=== PATIENT | female | born 1955 | race African-American/Black ===

== ENCOUNTER 2019-05-31 03:36 | Inpatient (IN) | payer OTHER ==
[~2019-05-31] VITALS: Ht 165.1 cm; Wt 87.5 kg
[2019-05-31] VITALS (22 sets, daily range): BP systolic 89–142; BP diastolic 44–98
[2019-05-31] MEDS ORDERED: IPRATROPIUM BROMIDE (0.02%) 0.5MG/2.5ML NEB HHN STA (03:41)
[2019-05-31] MEDS ORDERED: MAGNESIUM 2 G PREMIX 50 ML IV STA (03:41)
[2019-05-31] MEDS ORDERED: METHYLPREDNISOLONE SOD SUCC 125 MG/2 ML VIAL IV STA (03:41)
[2019-05-31] MEDS ORDERED: ALBUTEROL (0.083%) 2.5MG/3ML NEB HHN STA (03:41)
[2019-05-31 04:34] LABS: HEMATOCRIT. 43.5 % (36.0-48.0); HEMOGLOBIN. 14.1 g/dL (12.0-16.0); MEAN CORPUSCULAR HEMOGLOBIN 28.7 pg (28.0-32.0); MEAN CORPUSCULAR VOLUME 88.2 fL (81.0-99.0); MEAN PLATELET VOLUME 10.3 fl (7.4-10.4); PLATELET 209 x1000/uL (130-400); RED BLOOD CELL COUNT 4.93 mill/uL (4.2-5.4); RED CELL DISTRIBUTION WIDTH 15.2 % (11.6-14.6)
[2019-05-31 04:38] LABS: CHLORIDE 98 mEq/L (98-107)
[2019-05-31 04:42] LABS: INR 1.1; PROTHROMBIN TIME 11.4 sec (9.6-11.0)
[2019-05-31] MEDS ORDERED: PIPERACILLIN/TAZOBACTAM 3.375GM/50ML PREMIX IV SCH (05:00)
[2019-05-31] MEDS ORDERED: ENOXAPARIN 80MG/0.8ML SYR SUBCUT SCH (05:00)
[2019-05-31] MEDS ORDERED: AZITHROMYCIN 500 MG in DEXT 5% WATER 250 ML IV SCH (05:00)
[2019-05-31] MEDS ORDERED: VANCOMYCIN 1 G PREMIX 200 ML IV SCH (05:00)
[2019-05-31] MEDS ORDERED: ASPIRIN 325MG EC TABLET PO SCH (05:15)
[2019-05-31] MEDS ORDERED: TRAMADOL 50MG TABLET PO PRN (08:30)
[2019-05-31] MEDS ORDERED: MAGNESIUM/ALUMINUM HYDROXIDE/SIMETHICONE 30ML UDC PO PRN (08:30)
[2019-05-31] MEDS ORDERED: CLONIDINE 0.1MG TABLET PO PRN (08:30)
[2019-05-31] MEDS ORDERED: ZOLPIDEM TARTRATE 5MG TABLET PO PRN (08:30)
[2019-05-31] MEDS ORDERED: NITROGLYCERIN 0.4MG TABLET SL SL PRN (08:30)
[2019-05-31] MEDS ORDERED: MORPHINE SULFATE 2 MG/ML CPJ (NOT FOR IM USE) IV PRN (08:30)
[2019-05-31] MEDS ORDERED: ACETAMINOPHEN 325MG TABLET PO PRN (08:30)
[2019-05-31] MEDS ORDERED: ONDANSETRON HCL 4MG/2ML INJ IV PRN (08:30)
[2019-05-31 11:18] LABS: BG BASE EXCESS 0.6 mmol/L (-2.0-2.0); BG BILEVEL POS AIRWAY PRESSURE 15/5; BG CARBOXYHEMOGLOBIN 0.2 % (0.5-1.5); BG FRACTION INSPIRED OXYGEN 40; BG HCO3 ACT 25.6 mmol/L (22.0-26.0); BG METHEMOGLOBIN 0.4 % (0.0-1.5); BG OXYHEMOGLOBIN 98.4 % (94.0-97.0); BG PCO2 42.1 mmHg (35.0-45.0); BG PH 7.401 (7.350-7.450); BG PO2 177.5 mmHg (75.0-100.0); BG SAMPLE SITE RIGHT BRACHIAL; BG TOTAL HEMOGLOBIN 13.1 g/dL (12.0-18.0); BG VENT MODE MASK - BIPAP
[2019-05-31 11:35] LABS: CLARITY URINE TURBID (CLEAR); COLOR URINE DARK YELLOW (YELLOW); KETONES URINE TRACE (NEGATIVE); LEUKOCYTE ESTERASE URINE NEGATIVE (NEGATIVE); NITRITE URINE NEGATIVE (NEGATIVE); OCCULT BLOOD URINE NEGATIVE (NEGATIVE); PROTEIN URINE 1+ (NEGATIVE); UROBILINOGEN URINE 0.2 E.U./dL (0.2-1.0)
[2019-05-31 11:49] LABS: PLATELET ESTIMATE NORMAL
[2019-05-31] MEDS: DILTIAZEM HCL 60MG TABLET PO SCH ×2 (12:00→18:52)
[2019-05-31] MEDS: ZINC SULFATE 220 MG ( 50 ) CAPSULE PO SCH (12:40)
[2019-05-31] MEDS: FAMOTIDINE 20MG TABLET PO SCH ×2 (12:40→21:19)
[2019-05-31] MEDS ORDERED: LIDOCAINE HCL/PF 1% 2ML VIAL ONE (12:49)
[2019-05-31] MEDS: CEFTRIAXONE 1 G PREMIX 50 ML IV SCH (13:38)
[2019-05-31] MEDS: IPRATROPIUM/ALBUTEROL 0.5-3(2.5)MG/3ML NEB HHN SCH ×3 (13:39→21:50)
[2019-05-31] MEDS: METHYLPREDNISOLONE SOD SUCC 125 MG/2 ML VIAL IV SCH ×2 (14:01→21:42)
[2019-05-31] MEDS: GUAIFENESIN 200MG/10ML SUGAR FREE UDC PO PRN (14:01)
[2019-05-31] MEDS: LEVOFLOXACIN 500MG PREMIX 100 ML IV SCH (14:02)
[2019-05-31 15:53] LABS: CREATINE KINASE MB FRACTION 2.4 ng/mL (0.5-3.6)
[2019-05-31] MEDS ORDERED: DEXTROSE 50% WATER 50ML SYRINGE IV PRN (18:00)
[2019-05-31] MEDS: ENOXAPARIN 80MG/0.8ML SYR SUBCUT SCH (18:52)
[2019-05-31] MEDS: INSULIN LISPRO 100 UNITS/ML SUBCUT SCH (21:00)
[2019-05-31] MEDS: ASCORBIC ACID 500 MG TABLET PO SCH (21:18)
[2019-05-31] MEDS: GUAIFENESIN 600MG ER TABLET PO SCH (21:18)
[2019-05-31] MEDS: BLOOD SUGAR DIAGNOSTIC STRIP TEST SCH (21:19)
[2019-06-01] VITALS (23 sets, daily range): BP systolic 89–134; BP diastolic 55–83
[2019-06-01] MEDS: IPRATROPIUM/ALBUTEROL 0.5-3(2.5)MG/3ML NEB HHN SCH ×4 (00:57→12:15)
[2019-06-01 01:07] LABS: CREATINE KINASE MB FRACTION 1.7 ng/mL (0.5-3.6)
[2019-06-01] MEDS: ENOXAPARIN 80MG/0.8ML SYR SUBCUT SCH ×2 (05:42→17:47)
[2019-06-01] MEDS: METHYLPREDNISOLONE SOD SUCC 125 MG/2 ML VIAL IV SCH ×3 (05:42→21:27)
[2019-06-01] MEDS: DILTIAZEM HCL 60MG TABLET PO SCH ×2 (06:00)
[2019-06-01] MEDS: BLOOD SUGAR DIAGNOSTIC STRIP TEST SCH ×4 (06:20→21:00)
[2019-06-01] MEDS: INSULIN LISPRO 100 UNITS/ML SUBCUT SCH ×4 (07:20→21:00)
[2019-06-01] MEDS: ZINC SULFATE 220 MG ( 50 ) CAPSULE PO SCH (08:22)
[2019-06-01] MEDS: ASPIRIN 81MG EC TABLET PO SCH (08:22)
[2019-06-01] MEDS: ASCORBIC ACID 500 MG TABLET PO SCH ×2 (08:23→21:27)
[2019-06-01] MEDS: DOCUSATE SODIUM 100MG CAPSULE PO PRN (08:23)
[2019-06-01] MEDS: FAMOTIDINE 20MG TABLET PO SCH ×2 (08:23→21:27)
[2019-06-01] MEDS: GUAIFENESIN 600MG ER TABLET PO SCH ×2 (08:23→21:27)
[2019-06-01] MEDS ORDERED: ASPIRIN 325MG EC TABLET PO SCH (09:00)
[2019-06-01 09:01] LABS: BASOPHILS % 0.1 % (0.0-2.0); EOSINOPHILS % 0.3 % (0.0-5.0); HEMATOCRIT. 36.3 % (36.0-48.0); HEMOGLOBIN. 11.8 g/dL (12.0-16.0); LYMPHOCYTES % 8.7 % (20.0-50.0); MEAN CORPUSCULAR HEMOGLOBIN 28.6 pg (28.0-32.0); MEAN CORPUSCULAR VOLUME 87.6 fL (81.0-99.0); MEAN PLATELET VOLUME 10.2 fl (7.4-10.4); MONOCYTES % 2.7 % (2.0-8.0); NEUTROPHILS % 88.2 % (40.0-76.0); PLATELET 155 x1000/uL (130-400); RED BLOOD CELL COUNT 4.14 mill/uL (4.2-5.4); RED CELL DISTRIBUTION WIDTH 15.2 % (11.6-14.6)
[2019-06-01 09:04] LABS: CHLORIDE 99 mEq/L (98-107)
[2019-06-01 09:12] LABS: PHOSPHORUS 3.6 mg/dL (2.5-4.9)
[2019-06-01] MEDS ORDERED: DILTIAZEM HCL 5MG/ML 5ML VIAL IV SCH (10:00)
[2019-06-01] MEDS: DILTIAZEM HCL 125 MG in DEXT 5% WATER 100 ML IV SCH ×2 (11:41→21:42)
[2019-06-01] MEDS ORDERED: DILTIAZEM HCL 90MG TABLET PO SCH (12:00)
[2019-06-01] MEDS: CEFTRIAXONE 1 G PREMIX 50 ML IV SCH (13:04)
[2019-06-01] MEDS: GUAIFENESIN 200MG/10ML SUGAR FREE UDC PO PRN (13:23)
[2019-06-01] MEDS: LEVOFLOXACIN 500MG PREMIX 100 ML IV SCH (13:54)
[2019-06-01] MEDS: IPRATROPIUM/ALBUTEROL 0.5-3(2.5)MG/3ML NEB NEB PRN (16:33)
[2019-06-01] MEDS: IPRATROPIUM BROMIDE (0.02%) 0.5MG/2.5ML NEB HHN SCH (20:19)
[2019-06-01] MEDS ORDERED: GUAIFENESIN 600MG ER TABLET PO SCH (21:00)
[2019-06-02] VITALS (23 sets, daily range): BP systolic 100–141; BP diastolic 29–94
[2019-06-02] MEDS: IPRATROPIUM BROMIDE (0.02%) 0.5MG/2.5ML NEB HHN SCH ×6 (00:19→20:17)
[2019-06-02] MEDS ORDERED: DILTIAZEM HCL 125 MG in DEXT 5% WATER 100 ML IV SCH ×2 (03:15→13:00)
[2019-06-02] MEDS: METHYLPREDNISOLONE SOD SUCC 125 MG/2 ML VIAL IV SCH (05:25)
[2019-06-02] MEDS: ENOXAPARIN 80MG/0.8ML SYR SUBCUT SCH ×2 (05:25→17:45)
[2019-06-02] MEDS: DILTIAZEM HCL 125 MG in DEXT 5% WATER 100 ML IV SCH (05:26)
[2019-06-02] MEDS: BLOOD SUGAR DIAGNOSTIC STRIP TEST SCH ×4 (06:50→21:46)
[2019-06-02] MEDS: INSULIN LISPRO 100 UNITS/ML SUBCUT SCH ×4 (06:55→21:00)
[2019-06-02] MEDS: ASCORBIC ACID 500 MG TABLET PO SCH ×2 (08:25→21:38)
[2019-06-02] MEDS: FAMOTIDINE 20MG TABLET PO SCH ×2 (08:25→21:37)
[2019-06-02] MEDS: ASPIRIN 81MG EC TABLET PO SCH (08:25)
[2019-06-02] MEDS: ZINC SULFATE 220 MG ( 50 ) CAPSULE PO SCH (08:25)
[2019-06-02] MEDS: DOCUSATE SODIUM 100MG CAPSULE PO PRN ×2 (08:25→17:16)
[2019-06-02] MEDS: GUAIFENESIN 600MG ER TABLET PO SCH ×2 (08:26→21:38)
[2019-06-02] MEDS: GUAIFENESIN 200MG/10ML SUGAR FREE UDC PO PRN ×2 (08:29→21:52)
[2019-06-02] MEDS: CEFTRIAXONE 1 G PREMIX 50 ML IV SCH (08:30)
[2019-06-02] MEDS ORDERED: LEVOFLOXACIN 500MG PREMIX 100 ML IV SCH (11:00)
[2019-06-02] MEDS: DILTIAZEM HCL 30MG TABLET PO SCH ×2 (14:00→21:38)
[2019-06-02] MEDS: AZITHROMYCIN 500MG in DEXTROSE 5% WATER 250ML IV SCH (17:16)
[2019-06-02] MEDS: PREDNISONE 20MG TABLET PO SCH (17:17)
[2019-06-03] VITALS (20 sets, daily range): BP systolic 94–132; BP diastolic 49–97
[2019-06-03] MEDS: IPRATROPIUM BROMIDE (0.02%) 0.5MG/2.5ML NEB HHN SCH ×6 (00:26→20:58)
[2019-06-03] MEDS: BLOOD SUGAR DIAGNOSTIC STRIP TEST SCH ×4 (07:00→21:00)
[2019-06-03] MEDS: ENOXAPARIN 80MG/0.8ML SYR SUBCUT SCH ×2 (07:01→17:06)
[2019-06-03] MEDS: DILTIAZEM HCL 30MG TABLET PO SCH (07:01)
[2019-06-03 07:15] LABS: BASOPHILS % 0.3 % (0.0-2.0); EOSINOPHILS % 0.7 % (0.0-5.0); HEMATOCRIT. 36.3 % (36.0-48.0); LYMPHOCYTES % 9.7 % (20.0-50.0); MEAN CORPUSCULAR HEMOGLOBIN 28.8 pg (28.0-32.0); MEAN CORPUSCULAR VOLUME 86.8 fL (81.0-99.0); MEAN PLATELET VOLUME 9.6 fl (7.4-10.4); MONOCYTES % 8.6 % (2.0-8.0); NEUTROPHILS % 80.7 % (40.0-76.0); PLATELET 190 x1000/uL (130-400); RED BLOOD CELL COUNT 4.18 mill/uL (4.2-5.4); RED CELL DISTRIBUTION WIDTH 14.7 % (11.6-14.6)
[2019-06-03] MEDS: INSULIN LISPRO 100 UNITS/ML SUBCUT SCH ×4 (07:20→21:00)
[2019-06-03 07:30] LABS: CHLORIDE 102 mEq/L (98-107)
[2019-06-03] MEDS: ASCORBIC ACID 500 MG TABLET PO SCH ×2 (08:25→22:38)
[2019-06-03] MEDS: ASPIRIN 81MG EC TABLET PO SCH (08:25)
[2019-06-03] MEDS: PREDNISONE 20MG TABLET PO SCH ×2 (08:25→17:05)
[2019-06-03] MEDS: FAMOTIDINE 20MG TABLET PO SCH ×2 (08:25→22:38)
[2019-06-03] MEDS: GUAIFENESIN 600MG ER TABLET PO SCH ×2 (08:26→22:39)
[2019-06-03] MEDS: ZINC SULFATE 220 MG ( 50 ) CAPSULE PO SCH (08:26)
[2019-06-03] MEDS: CEFTRIAXONE 1 G PREMIX 50 ML IV SCH (08:28)
[2019-06-03] MEDS: AZITHROMYCIN 500MG in DEXTROSE 5% WATER 250ML IV SCH (08:28)
[2019-06-03] MEDS ORDERED: DILTIAZEM HCL 5MG/ML 5ML VIAL IV NR (09:30)
[2019-06-03] MEDS ORDERED: DILTIAZEM HCL 125 MG in DEXT 5% WATER 100 ML IV SCH (10:00)
[2019-06-03] MEDS ORDERED: POTASSIUM CHLORIDE 20MEQ TABLET SR PO NR (10:15)
[2019-06-03] MEDS: DILTIAZEM HCL 60MG TABLET PO SCH ×2 (12:09→17:05)
[2019-06-04] VITALS (17 sets, daily range): BP systolic 95–172; BP diastolic 36–100
[2019-06-04] MEDS: DILTIAZEM HCL 60MG TABLET PO SCH ×5 (00:20→23:35)
[2019-06-04] MEDS: IPRATROPIUM BROMIDE (0.02%) 0.5MG/2.5ML NEB HHN SCH ×5 (00:52→15:40)
[2019-06-04] MEDS: ENOXAPARIN 80MG/0.8ML SYR SUBCUT SCH ×2 (04:50→16:47)
[2019-06-04] MEDS: INSULIN LISPRO 100 UNITS/ML SUBCUT SCH ×2 (06:50→21:00)
[2019-06-04 07:00] LABS: BASOPHILS % 0.1 % (0.0-2.0); EOSINOPHILS % 0.8 % (0.0-5.0); HEMATOCRIT. 36.5 % (36.0-48.0); HEMOGLOBIN. 12.1 g/dL (12.0-16.0); LYMPHOCYTES % 7.9 % (20.0-50.0); MEAN CORPUSCULAR HEMOGLOBIN 28.8 pg (28.0-32.0); MEAN CORPUSCULAR VOLUME 86.7 fL (81.0-99.0); MONOCYTES % 7.5 % (2.0-8.0); NEUTROPHILS % 83.7 % (40.0-76.0); PLATELET 196 x1000/uL (130-400); RED BLOOD CELL COUNT 4.21 mill/uL (4.2-5.4); RED CELL DISTRIBUTION WIDTH 14.9 % (11.6-14.6)
[2019-06-04] MEDS: BLOOD SUGAR DIAGNOSTIC STRIP TEST SCH ×2 (07:11→22:07)
[2019-06-04 07:41] LABS: CHLORIDE 103 mEq/L (98-107)
[2019-06-04] MEDS: ASPIRIN 81MG EC TABLET PO SCH (08:19)
[2019-06-04] MEDS: ZINC SULFATE 220 MG ( 50 ) CAPSULE PO SCH (08:19)
[2019-06-04] MEDS: FAMOTIDINE 20MG TABLET PO SCH ×2 (08:19→20:08)
[2019-06-04] MEDS: PREDNISONE 20MG TABLET PO SCH (08:19)
[2019-06-04] MEDS: GUAIFENESIN 600MG ER TABLET PO SCH ×2 (08:19→20:08)
[2019-06-04] MEDS: ASCORBIC ACID 500 MG TABLET PO SCH ×2 (08:20→20:08)
[2019-06-04] MEDS: AZITHROMYCIN 500MG in DEXTROSE 5% WATER 250ML IV SCH (08:20)
[2019-06-04] MEDS: CEFTRIAXONE 1 G PREMIX 50 ML IV SCH (10:25)
[2019-06-04] MEDS ORDERED: POTASSIUM CHLORIDE 20MEQ TABLET SR PO SCH (11:15)
[2019-06-04] MEDS: IPRATROPIUM/ALBUTEROL 0.5-3(2.5)MG/3ML NEB NEB PRN (15:38)
[2019-06-04] MEDS: POTASSIUM CHLORIDE 20MEQ TABLET SR PO SCH (16:46)
[2019-06-04] MEDS: GUAIFENESIN 200MG/10ML SUGAR FREE UDC PO PRN (23:42)
[2019-06-05] VITALS (14 sets, daily range): BP systolic 96–153; BP diastolic 63–106
[2019-06-05] MEDS ORDERED: DILTIAZEM HCL 5MG/ML 5ML VIAL IV NR (00:15)
[2019-06-05] MEDS ORDERED: DILTIAZEM HCL 125 MG in DEXT 5% WATER 100 ML IV PRN (00:15)
[2019-06-05] MEDS: IPRATROPIUM BROMIDE (0.02%) 0.5MG/2.5ML NEB HHN SCH ×6 (01:12→20:08)
[2019-06-05] MEDS ORDERED: ENOXAPARIN 80MG/0.8ML SYR SUBCUT SCH (05:15)
[2019-06-05] MEDS: BLOOD SUGAR DIAGNOSTIC STRIP TEST SCH ×2 (06:33→20:42)
[2019-06-05] MEDS: INSULIN LISPRO 100 UNITS/ML SUBCUT SCH ×2 (06:34→20:40)
[2019-06-05] MEDS: DILTIAZEM HCL 60MG TABLET PO SCH (06:35)
[2019-06-05] MEDS: GUAIFENESIN 600MG ER TABLET PO SCH ×2 (08:09→20:39)
[2019-06-05] MEDS: ZINC SULFATE 220 MG ( 50 ) CAPSULE PO SCH (08:09)
[2019-06-05] MEDS: ASPIRIN 81MG EC TABLET PO SCH (08:09)
[2019-06-05] MEDS: POTASSIUM CHLORIDE 20MEQ TABLET SR PO SCH (08:09)
[2019-06-05] MEDS: FAMOTIDINE 20MG TABLET PO SCH (08:09)
[2019-06-05] MEDS: ASCORBIC ACID 500 MG TABLET PO SCH ×2 (08:09→20:39)
[2019-06-05] MEDS: PREDNISONE 20MG TABLET PO SCH (08:09)
[2019-06-05] MEDS: CEFTRIAXONE 1 G PREMIX 50 ML IV SCH (08:10)
[2019-06-05] MEDS: AZITHROMYCIN 500MG in DEXTROSE 5% WATER 250ML IV SCH (08:42)
[2019-06-05 09:00] LABS: CHLORIDE 103 mEq/L (98-107)
[2019-06-05 09:03] LABS: BASOPHILS % 0.4 % (0.0-2.0); EOSINOPHILS % 4.5 % (0.0-5.0); HEMATOCRIT. 42.4 % (36.0-48.0); LYMPHOCYTES % 13.7 % (20.0-50.0); MEAN CORPUSCULAR HEMOGLOBIN 28.9 pg (28.0-32.0); MEAN CORPUSCULAR VOLUME 87.7 fL (81.0-99.0); MEAN PLATELET VOLUME 9.9 fl (7.4-10.4); MONOCYTES % 7.2 % (2.0-8.0); NEUTROPHILS % 74.2 % (40.0-76.0); PLATELET 190 x1000/uL (130-400); RED BLOOD CELL COUNT 4.83 mill/uL (4.2-5.4); RED CELL DISTRIBUTION WIDTH 15.4 % (11.6-14.6)
[2019-06-05] MEDS: DILTIAZEM HCL 90MG TABLET PO SCH ×3 (11:38→23:30)
[2019-06-05] MEDS: ENOXAPARIN 80MG/0.8ML SYR SUBCUT SCH (17:27)
[2019-06-05] MEDS: FAMOTIDINE 40MG TABLET PO SCH (20:42)
[2019-06-05] MEDS: DILTIAZEM HCL 5MG/ML 5ML VIAL IV PRN (21:36)
[2019-06-06] VITALS (12 sets, daily range): BP systolic 115–142; BP diastolic 41–102
[2019-06-06] MEDS: IPRATROPIUM BROMIDE (0.02%) 0.5MG/2.5ML NEB HHN SCH ×6 (00:19→20:05)
[2019-06-06] MEDS: DILTIAZEM HCL 5MG/ML 5ML VIAL IV PRN (00:51)
[2019-06-06] MEDS: GUAIFENESIN 200MG/10ML SUGAR FREE UDC PO PRN ×2 (01:02→08:10)
[2019-06-06] MEDS ORDERED: DILTIAZEM HCL 5MG/ML 5ML VIAL IV NR ×2 (03:00→04:00)
[2019-06-06] MEDS: DILTIAZEM HCL 125 MG in DEXT 5% WATER 100 ML IV SCH ×4 (04:36→20:39)
[2019-06-06] MEDS: ENOXAPARIN 80MG/0.8ML SYR SUBCUT SCH ×2 (05:19→18:10)
[2019-06-06] MEDS: BLOOD SUGAR DIAGNOSTIC STRIP TEST SCH ×2 (05:58→20:17)
[2019-06-06] MEDS: INSULIN LISPRO 100 UNITS/ML SUBCUT SCH ×2 (05:59→20:17)
[2019-06-06] MEDS: ASPIRIN 81MG EC TABLET PO SCH (08:10)
[2019-06-06] MEDS: PREDNISONE 20MG TABLET PO SCH (08:10)
[2019-06-06] MEDS: ASCORBIC ACID 500 MG TABLET PO SCH ×2 (08:10→20:39)
[2019-06-06] MEDS: ZINC SULFATE 220 MG ( 50 ) CAPSULE PO SCH (08:10)
[2019-06-06] MEDS: GUAIFENESIN 600MG ER TABLET PO SCH ×2 (08:10→20:39)
[2019-06-06] MEDS: POTASSIUM CHLORIDE 20MEQ TABLET SR PO SCH (08:18)
[2019-06-06] MEDS: FAMOTIDINE 40MG TABLET PO SCH ×2 (08:18→20:39)
[2019-06-06] MEDS ORDERED: DILTIAZEM HCL 5MG/ML 5ML VIAL IV SCH (11:00)
[2019-06-06] MEDS ORDERED: DIGOXIN 500MCG/2ML AMP IV SCH ×2 (13:00→15:00)
[2019-06-06] MEDS: CEFTRIAXONE 1 G PREMIX 50 ML IV SCH (14:53)
[2019-06-06] MEDS: AZITHROMYCIN 500MG in DEXTROSE 5% WATER 250ML IV SCH (15:41)
[2019-06-06] MEDS: DIGOXIN 500MCG/2ML AMP IV SCH ×2 (16:23→18:10)
[2019-06-07] VITALS (79 sets, daily range): BP systolic 55–192; BP diastolic 13–145
[2019-06-07] MEDS: IPRATROPIUM BROMIDE (0.02%) 0.5MG/2.5ML NEB HHN SCH ×6 (00:21→20:03)
[2019-06-07] MEDS: DILTIAZEM HCL 125 MG in DEXT 5% WATER 100 ML IV SCH ×3 (04:19→21:00)
[2019-06-07] MEDS: ENOXAPARIN 80MG/0.8ML SYR SUBCUT SCH ×2 (05:12→17:18)
[2019-06-07 05:50] LABS: CHLORIDE 102 mEq/L (98-107)
[2019-06-07] MEDS: BLOOD SUGAR DIAGNOSTIC STRIP TEST SCH ×2 (05:59→21:00)
[2019-06-07] MEDS: INSULIN LISPRO 100 UNITS/ML SUBCUT SCH ×2 (06:03→21:00)
[2019-06-07 06:49] LABS: HEMATOCRIT. 47.8 % (36.0-48.0); HEMOGLOBIN. 15.7 g/dL (12.0-16.0); MEAN CORPUSCULAR VOLUME 88.3 fL (81.0-99.0); MEAN PLATELET VOLUME 10.9 fl (7.4-10.4); PLATELET 133 x1000/uL (130-400); RED BLOOD CELL COUNT 5.41 mill/uL (4.2-5.4); RED CELL DISTRIBUTION WIDTH 15.6 % (11.6-14.6)
[2019-06-07] MEDS ORDERED: SODIUM CHLORIDE 0.9% 250 ML IV ONE ×2 (07:56→08:00)
[2019-06-07 07:58] LABS: BG BASE EXCESS -2.8 mmol/L (-2.0-2.0); BG BILEVEL POS AIRWAY PRESSURE 15/5; BG CARBOXYHEMOGLOBIN 0.3 % (0.5-1.5); BG DEOXYHEMOGLOBIN 2.5 % (0.0-5.0); BG FRACTION INSPIRED OXYGEN 35; BG HCO3 ACT 22.5 mmol/L (22.0-26.0); BG OXYGEN SATURATION 97.5 % (92.0-98.5); BG OXYHEMOGLOBIN 97.2 % (94.0-97.0); BG PCO2 41.3 mmHg (35.0-45.0); BG PH 7.355 (7.350-7.450); BG PO2 103.1 mmHg (75.0-100.0); BG SAMPLE SITE RIGHT RADIAL; BG TOTAL HEMOGLOBIN 15.3 g/dL (12.0-18.0); BG VENT MODE MASK - BIPAP
[2019-06-07] MEDS ORDERED: DIGOXIN 500MCG/2ML AMP IV NR (08:00)
[2019-06-07] MEDS ORDERED: PHENYLEPHRINE 40 MG in DEXT 5% WATER 246 ML IV PRN (08:15)
[2019-06-07] MEDS: FAMOTIDINE 40MG TABLET PO SCH ×2 (09:00→21:00)
[2019-06-07] MEDS: ZINC SULFATE 220 MG ( 50 ) CAPSULE PO SCH (09:00)
[2019-06-07] MEDS: PREDNISONE 20MG TABLET PO SCH (09:00)
[2019-06-07] MEDS: ASPIRIN 81MG EC TABLET PO SCH (09:00)
[2019-06-07] MEDS: POTASSIUM CHLORIDE 20MEQ TABLET SR PO SCH (09:00)
[2019-06-07] MEDS: GUAIFENESIN 600MG ER TABLET PO SCH ×2 (09:00→20:20)
[2019-06-07] MEDS ORDERED: NOREPINEPHRINE 4 MG in DEXT 5% WATER 246 ML IV ONE (09:00)
[2019-06-07] MEDS: ASCORBIC ACID 500 MG TABLET PO SCH ×2 (09:00→21:00)
[2019-06-07] MEDS: NOREPINEPHRINE 16 MG in DEXT 5% WATER 234 ML IV PRN (09:24)
[2019-06-07] MEDS: CALCIUM CHLORIDE 1,000 MG in DEXT 5% WATER 90 ML IV SCH ×2 (10:30→10:55)
[2019-06-07] MEDS ORDERED: CALCIUM GLUCONATE 100MG/ML 10ML VIAL IV ONE (10:30)
[2019-06-07] MEDS ORDERED: SODIUM BICARBONATE 8.4% 1 MEQ/ML 50ML SYR IV NR (10:30)
[2019-06-07] MEDS ORDERED: SODIUM BICARBONATE 8.4% 1 MEQ/ML 50ML SYR IV ONE (10:34)
[2019-06-07] MEDS ORDERED: CALCIUM CHLORIDE 1GM/10ML SYR IV ONE (10:37)
[2019-06-07] MEDS ORDERED: VASOPRESSIN 10 UNIT in SODIUM CHLORIDE 0.9% 99.5 ML IV PRN (10:45)
[2019-06-07] MEDS: PROPOFOL 10MG/ML 100ML 100 ML IV PRN ×4 (10:54→21:12)
[2019-06-07 11:17] LABS: BG BASE EXCESS -3.4 mmol/L (-2.0-2.0); BG CARBOXYHEMOGLOBIN 0.1 % (0.5-1.5); BG DEOXYHEMOGLOBIN 0.4 % (0.0-5.0); BG FRACTION INSPIRED OXYGEN 100; BG HCO3 ACT 22.6 mmol/L (22.0-26.0); BG METHEMOGLOBIN 0.4 % (0.0-1.5); BG OXYGEN SATURATION 99.6 % (92.0-98.5); BG OXYHEMOGLOBIN 99.1 % (94.0-97.0); BG PCO2 44.2 mmHg (35.0-45.0); BG PH 7.326 (7.350-7.450); BG PO2 491.5 mmHg (75.0-100.0); BG SAMPLE SITE LEFT RADIAL; BG TIDAL VOLUME(mL) 600 mL; BG TOTAL HEMOGLOBIN 13.8 g/dL (12.0-18.0); BG VENT MODE VENT - A/C; BG VENT RATE 16 set
[2019-06-07] MEDS: PHENYLEPHRINE 80 MG in DEXT 5% WATER 492 ML IV PRN ×2 (11:29→18:50)
[2019-06-07] MEDS ORDERED: SODIUM CHLORIDE 0.9% 1,000 ML IV SCH (12:00)
[2019-06-07 13:17] LABS: PLATELET ESTIMATE NORMAL
[2019-06-07] MEDS ORDERED: AMIODARONE HCL 900 MG in DEXT 5% WATER 482 ML IV SCH (14:00)
[2019-06-07] MEDS ORDERED: AMIODARONE HCL 150 MG in DEXT 5% WATER 100 ML IV SCH (14:00)
[2019-06-07] MEDS: PIPERACILLIN/TAZOBACTAM 3.375 G in DEXT 5% WATER 100 ML IV SCH ×2 (15:00→21:07)
[2019-06-07 16:38] LABS: T4 FREE 0.99 ng/dL (0.76-1.46)
[2019-06-07] MEDS: DEXT 5%/0.9% NACL 1,000 ML IV SCH (18:24)
[2019-06-08] VITALS (92 sets, daily range): BP systolic 88–150; BP diastolic 17–105
[2019-06-08] MEDS: IPRATROPIUM BROMIDE (0.02%) 0.5MG/2.5ML NEB HHN SCH ×6 (00:23→20:12)
[2019-06-08] MEDS: PHENYLEPHRINE 80 MG in DEXT 5% WATER 492 ML IV PRN ×3 (01:29→17:34)
[2019-06-08] MEDS: PIPERACILLIN/TAZOBACTAM 3.375 G in DEXT 5% WATER 100 ML IV SCH ×4 (02:16→20:22)
[2019-06-08] MEDS: PROPOFOL 10MG/ML 100ML 100 ML IV PRN ×5 (02:17→20:40)
[2019-06-08] MEDS: DILTIAZEM HCL 125 MG in DEXT 5% WATER 100 ML IV SCH (05:40)
[2019-06-08] MEDS ORDERED: IOHEXOL-350 100 ML BOTTLE ONE (06:01)
[2019-06-08] MEDS: BLOOD SUGAR DIAGNOSTIC STRIP TEST SCH (06:02)
[2019-06-08] MEDS: INSULIN LISPRO 100 UNITS/ML SUBCUT SCH ×2 (06:02→23:59)
[2019-06-08] MEDS: ENOXAPARIN 80MG/0.8ML SYR SUBCUT SCH ×2 (06:03→18:51)
[2019-06-08] MEDS: IPRATROPIUM/ALBUTEROL 0.5-3(2.5)MG/3ML NEB NEB PRN ×2 (08:36→15:57)
[2019-06-08] MEDS: ASCORBIC ACID 500 MG TABLET PO SCH ×2 (08:41→20:22)
[2019-06-08] MEDS: PREDNISONE 20MG TABLET PO SCH (08:41)
[2019-06-08] MEDS: ASPIRIN 81MG EC TABLET PO SCH (08:41)
[2019-06-08] MEDS: ZINC SULFATE 220 MG ( 50 ) CAPSULE PO SCH (08:41)
[2019-06-08] MEDS: GUAIFENESIN 600MG ER TABLET PO SCH ×2 (08:41→20:22)
[2019-06-08] MEDS: FAMOTIDINE 40MG TABLET PO SCH ×2 (08:41→20:22)
[2019-06-08] MEDS: POTASSIUM CHLORIDE 20MEQ TABLET SR PO SCH (08:41)
[2019-06-08] MEDS: DEXT 5%/0.9% NACL 1,000 ML IV SCH ×3 (08:52→21:50)
[2019-06-08] MEDS: LORAZEPAM 2MG/ML CPJ IV PRN ×2 (12:50→21:17)
[2019-06-08 13:17] LABS: MEAN CORPUSCULAR HEMOGLOBIN 29.2 pg (28.0-32.0); MEAN CORPUSCULAR VOLUME 89.5 fL (81.0-99.0); MEAN PLATELET VOLUME 10.1 fl (7.4-10.4); PLATELET 135 x1000/uL (130-400); RED BLOOD CELL COUNT 4.41 mill/uL (4.2-5.4); RED CELL DISTRIBUTION WIDTH 15.7 % (11.6-14.6)
[2019-06-08 13:26] LABS: CHLORIDE 103 mEq/L (98-107)
[2019-06-08 13:29] LABS: HEMATOCRIT. 39.5 % (36.0-48.0); HEMOGLOBIN. 12.9 g/dL (12.0-16.0)
[2019-06-08 13:47] LABS: PLATELET ESTIMATE NORMAL
[2019-06-08] MEDS ORDERED: AMIODARONE HCL 200 MG TABLET PO SCH (17:00)
[2019-06-08] MEDS ORDERED: AMIODARONE HCL 200 MG TABLET PO NR (18:15)
[2019-06-09] VITALS (102 sets, daily range): BP systolic 64–176; BP diastolic 39–121
[2019-06-09] MEDS: BLOOD SUGAR DIAGNOSTIC STRIP TEST SCH ×4 (00:01→17:07)
[2019-06-09] MEDS: IPRATROPIUM BROMIDE (0.02%) 0.5MG/2.5ML NEB HHN SCH ×5 (00:35→20:37)
[2019-06-09] MEDS: NOREPINEPHRINE 16 MG in DEXT 5% WATER 234 ML IV PRN (02:10)
[2019-06-09] MEDS: PIPERACILLIN/TAZOBACTAM 3.375 G in DEXT 5% WATER 100 ML IV SCH ×4 (02:11→21:25)
[2019-06-09 05:14] LABS: BASOPHILS % 0.5 % (0.0-2.0); EOSINOPHILS % 0.9 % (0.0-5.0); HEMATOCRIT. 34.9 % (36.0-48.0); HEMOGLOBIN. 11.5 g/dL (12.0-16.0); LYMPHOCYTES % 7.7 % (20.0-50.0); MEAN CORPUSCULAR VOLUME 87.8 fL (81.0-99.0); MEAN PLATELET VOLUME 9.8 fl (7.4-10.4); MONOCYTES % 5.1 % (2.0-8.0); NEUTROPHILS % 85.8 % (40.0-76.0); PLATELET 130 x1000/uL (130-400); RED BLOOD CELL COUNT 3.97 mill/uL (4.2-5.4); RED CELL DISTRIBUTION WIDTH 15.9 % (11.6-14.6)
[2019-06-09] MEDS: ENOXAPARIN 80MG/0.8ML SYR SUBCUT SCH ×2 (05:19→17:07)
[2019-06-09] MEDS: INSULIN LISPRO 100 UNITS/ML SUBCUT SCH ×3 (05:20→17:14)
[2019-06-09 05:31] LABS: CHLORIDE 107 mEq/L (98-107)
[2019-06-09] MEDS: POTASSIUM CHLORIDE 20MEQ TABLET SR PO SCH (08:42)
[2019-06-09] MEDS: GUAIFENESIN 600MG ER TABLET PO SCH ×2 (08:42→21:25)
[2019-06-09] MEDS: ASCORBIC ACID 500 MG TABLET PO SCH ×2 (08:42→21:25)
[2019-06-09] MEDS: AMIODARONE HCL 200 MG TABLET PO SCH ×2 (08:42→17:07)
[2019-06-09] MEDS: ZINC SULFATE 220 MG ( 50 ) CAPSULE PO SCH (08:42)
[2019-06-09] MEDS: PREDNISONE 20MG TABLET PO SCH (08:43)
[2019-06-09] MEDS: ASPIRIN 81MG EC TABLET PO SCH (08:43)
[2019-06-09] MEDS: FAMOTIDINE 40MG TABLET PO SCH ×2 (08:43→21:25)
[2019-06-09] MEDS: PROPOFOL 10MG/ML 100ML 100 ML IV PRN ×2 (08:45→18:19)
[2019-06-09] MEDS: DEXT 5%/0.9% NACL 1,000 ML IV SCH ×2 (09:42→18:18)
[2019-06-09 09:48] LABS: BG BASE EXCESS -2.4 mmol/L (-2.0-2.0); BG CARBOXYHEMOGLOBIN 0.3 % (0.5-1.5); BG DEOXYHEMOGLOBIN 0.9 % (0.0-5.0); BG FRACTION INSPIRED OXYGEN 40; BG HCO3 ACT 21.5 mmol/L (22.0-26.0); BG METHEMOGLOBIN 0.3 % (0.0-1.5); BG OXYGEN SATURATION 99.1 % (92.0-98.5); BG OXYHEMOGLOBIN 98.5 % (94.0-97.0); BG PCO2 34.2 mmHg (35.0-45.0); BG PH 7.416 (7.350-7.450); BG PO2 182.8 mmHg (75.0-100.0); BG SAMPLE SITE RIGHT RADIAL; BG TIDAL VOLUME(mL) 600 mL; BG TOTAL HEMOGLOBIN 12.1 g/dL (12.0-18.0); BG VENT MODE VENT - A/C; BG VENT RATE 16 set
[2019-06-09] MEDS: DILTIAZEM HCL 125 MG in DEXT 5% WATER 100 ML IV SCH (10:56)
[2019-06-09] MEDS: PHENYLEPHRINE 80 MG in DEXT 5% WATER 492 ML IV PRN (13:14)
[2019-06-09] MEDS: DOCUSATE SODIUM 100MG CAPSULE PO PRN (17:07)
[2019-06-09 21:15] LABS: BG CARBOXYHEMOGLOBIN 0.4 % (0.5-1.5); BG FRACTION INSPIRED OXYGEN 40; BG HCO3 ACT 19.2 mmol/L (22.0-26.0); BG METHEMOGLOBIN 0.4 % (0.0-1.5); BG OXYHEMOGLOBIN 98.2 % (94.0-97.0); BG PCO2 40.8 mmHg (35.0-45.0); BG PO2 163.5 mmHg (75.0-100.0); BG SAMPLE SITE RIGHT RADIAL; BG TIDAL VOLUME(mL) 600 mL; BG TOTAL HEMOGLOBIN 13.6 g/dL (12.0-18.0); BG VENT MODE VENT - A/C; BG VENT RATE 16 set
[2019-06-10] VITALS (41 sets, daily range): BP systolic 92–155; BP diastolic 43–107
[2019-06-10] MEDS: PROPOFOL 10MG/ML 100ML 100 ML IV PRN ×5 (00:02→16:07)
[2019-06-10] MEDS: IPRATROPIUM BROMIDE (0.02%) 0.5MG/2.5ML NEB HHN SCH ×5 (00:19→16:14)
[2019-06-10] MEDS: PIPERACILLIN/TAZOBACTAM 3.375 G in DEXT 5% WATER 100 ML IV SCH ×3 (03:43→16:00)
[2019-06-10] MEDS: DEXT 5%/0.9% NACL 1,000 ML IV SCH ×2 (05:28→16:06)
[2019-06-10] MEDS: INSULIN LISPRO 100 UNITS/ML SUBCUT SCH ×3 (06:00→18:00)
[2019-06-10 06:14] LABS: BASOPHILS % 0.3 % (0.0-2.0); HEMATOCRIT. 32.9 % (36.0-48.0); HEMOGLOBIN. 10.8 g/dL (12.0-16.0); LYMPHOCYTES % 7.2 % (20.0-50.0); MEAN CORPUSCULAR VOLUME 88.8 fL (81.0-99.0); MEAN PLATELET VOLUME 10.6 fl (7.4-10.4); MONOCYTES % 5.1 % (2.0-8.0); NEUTROPHILS % 85.4 % (40.0-76.0); PLATELET 132 x1000/uL (130-400); RED BLOOD CELL COUNT 3.71 mill/uL (4.2-5.4); RED CELL DISTRIBUTION WIDTH 15.8 % (11.6-14.6)
[2019-06-10] MEDS: ENOXAPARIN 80MG/0.8ML SYR SUBCUT SCH (06:49)
[2019-06-10] MEDS: BLOOD SUGAR DIAGNOSTIC STRIP TEST SCH ×3 (06:59→18:00)
[2019-06-10 08:02] LABS: BG BASE EXCESS -6.7 mmol/L (-2.0-2.0); BG DEOXYHEMOGLOBIN 1.3 % (0.0-5.0); BG HCO3 ACT 18.8 mmol/L (22.0-26.0); BG METHEMOGLOBIN 0.3 % (0.0-1.5); BG OXYGEN SATURATION 98.7 % (92.0-98.5); BG OXYHEMOGLOBIN 98.4 % (94.0-97.0); BG PCO2 37.5 mmHg (35.0-45.0); BG PH 7.318 (7.350-7.450); BG PO2 144.2 mmHg (75.0-100.0); BG SAMPLE SITE RIGHT RADIAL; BG TIDAL VOLUME(mL) 550 mL; BG VENT MODE VENT - A/C; BG VENT RATE 18 set
[2019-06-10] MEDS: DOCUSATE SODIUM 100MG CAPSULE PO PRN (08:19)
[2019-06-10] MEDS: ASPIRIN 81MG EC TABLET PO SCH (08:20)
[2019-06-10] MEDS: ASCORBIC ACID 500 MG TABLET PO SCH (08:20)
[2019-06-10] MEDS: PREDNISONE 20MG TABLET PO SCH (08:20)
[2019-06-10] MEDS: POTASSIUM CHLORIDE 20MEQ TABLET SR PO SCH (08:20)
[2019-06-10] MEDS: GUAIFENESIN 600MG ER TABLET PO SCH (08:20)
[2019-06-10] MEDS: AMIODARONE HCL 200 MG TABLET PO SCH ×2 (08:20→19:33)
[2019-06-10] MEDS: ZINC SULFATE 220 MG ( 50 ) CAPSULE PO SCH (08:23)
[2019-06-10] MEDS: FAMOTIDINE 40MG TABLET PO SCH (08:40)
[2019-06-10] MEDS: LORAZEPAM 2MG/ML CPJ IV PRN (13:31)
[2019-06-10 14:43] LABS: CHLORIDE 111 mEq/L (98-107)
[2019-06-10] MEDS ORDERED: ENOXAPARIN 100MG/ML SYR SUBCUT SCH (18:00)
== END 2019-06-10 20:30 | disposition short-term general hospital (02) | DRG 871 ==
LOC: ER 03:36 → 3WST 05:06 → EDBEDREQTM 05:13 → EDBEDREQ 05:13 → ENRESERV 08:25 → 3WST 06-07 07:36 → MICUNO 06-07 08:00
PROVIDERS: ADMIT Internal Medicine; ATTEND Internal Medicine
PROC: 5A09357 Assistance with Respiratory Ventilation, Less than 24 Consecutive Hours, Continuous Positive Airway Pressure (ICD-10-PCS; 2019-05-31)
PROC: 5A09457 Assistance with Respiratory Ventilation, 24-96 Consecutive Hours, Continuous Positive Airway Pressure (ICD-10-PCS; 2019-06-01)
PROC: 5A09357 Assistance with Respiratory Ventilation, Less than 24 Consecutive Hours, Continuous Positive Airway Pressure (ICD-10-PCS; 2019-06-03)
PROC: 5A09357 Assistance with Respiratory Ventilation, Less than 24 Consecutive Hours, Continuous Positive Airway Pressure (ICD-10-PCS; 2019-06-05)
PROC: 05HY33Z Insertion of Infusion Device into Upper Vein, Percutaneous Approach (ICD-10-PCS; 2019-06-06)
PROC: B54MZZZ Ultrasonography of Right Upper Extremity Veins (ICD-10-PCS; 2019-06-06)
PROC: 5A09357 Assistance with Respiratory Ventilation, Less than 24 Consecutive Hours, Continuous Positive Airway Pressure (ICD-10-PCS; 2019-06-06)
PROC: 5A1945Z Respiratory Ventilation, 24-96 Consecutive Hours (ICD-10-PCS; principal; 2019-06-07)
PROC: 0BH17EZ Insertion of Endotracheal Airway into Trachea, Via Natural or Artificial Opening (ICD-10-PCS; 2019-06-07)
PROC: 5A09357 Assistance with Respiratory Ventilation, Less than 24 Consecutive Hours, Continuous Positive Airway Pressure (ICD-10-PCS; 2019-06-07)
DX: A41.9 Sepsis, unspecified organism (principal); I21.4 Non-ST elevation (NSTEMI) myocardial infarction; J96.00 Acute respiratory failure, unspecified whether with hypoxia or hypercapnia; J18.9 Pneumonia, unspecified organism; I26.99 Other pulmonary embolism without acute cor pulmonale; R57.0 Cardiogenic shock; R65.21 Severe sepsis with septic shock; E87.1 Hypo-osmolality and hyponatremia; J44.1 Chronic obstructive pulmonary disease with (acute) exacerbation; E44.0 Moderate protein-calorie malnutrition; J44.0 Chronic obstructive pulmonary disease with (acute) lower respiratory infection; I69.351 Hemiplegia and hemiparesis following cerebral infarction affecting right dominant side; I10 Essential (primary) hypertension; R79.1 Abnormal coagulation profile; E03.9 Hypothyroidism, unspecified; E11.9 Type 2 diabetes mellitus without complications; I11.9 Hypertensive heart disease without heart failure; I48.0 Paroxysmal atrial fibrillation; Z86.718 Personal history of other venous thrombosis and embolism; Z87.891 Personal history of nicotine dependence; Z79.01 Long term (current) use of anticoagulants; Z85.118 Personal history of other malignant neoplasm of bronchus and lung; Z90.710 Acquired absence of both cervix and uterus; Z68.32 Body mass index [BMI] 32.0-32.9, adult
CPT/HCPCS: 36415; 36600; 71045; 71275; 76937; 78580; 80048; 80053; 80061; 80076; 81003; 82375; 82550; 82553; 82805; 82962; 83036; 83605; 83735; 83880; 84100; 84145; 84439; 84443; 84478; 84481; 84484; 85025; 87804; 93005; 93306; 93970; 94640; 94660; 97162; 97166; 99291; A6261; C1725; J0282; J0456; J0696; J1160; J1650; J1815; J1956; J2060; J2370; J2543; J2704; J2930; J3370; J3475; J3490; J7040; J7042; J7060; J7512; J7611; J7620; Q9967; A4315